=== PATIENT | female | born 1950 | race Caucasian/White ===

== ENCOUNTER 2022-02-12 20:49 | Inpatient (IN) | payer MEDICARE, OTHER, MEDICAID ==
[~2022-02-12] VITALS: Ht 167.6 cm; Wt 125.5 kg
[~2022-02-12 20:49] MED LIST: HYDROCODON-ACE1 EA10 PO; IBUPROFEN800 MG PO; NORCO 5-325 TA1 EACH PO; SULFAMETHOXAZO1 EAC1 PO; VITAMIN D21250 MCG PO
[2022-02-13] MEDS ORDERED: IBUPROFEN800 MG PO (03:35)
--- NOTE | 2022-02-13 04:27 | NUR ---
030 - ARRIVED TO FLOOR FROM ED TO RROM 119 VIA STRETCHER, 3 PEOPLE ASSIST AND AIR MATTRESS FOR TRANSFER. PT ALERT AND ORIENTED, ANXIOUS, REASSURED. ON 2LNC NOT CHRONIC, LUNGS WITH CRAKLES AT BASES MOIST PRODUCTIVE COUGH OF GREENISH COLORED PHLEGSM. ABLE TO EXPECTORATE BUT SWALLOWS IT SOMETIMES, FLUSHED FACE, RED AREAS UNER BREAST, PANNUS TC AREA AND BUTTOCKS, LOTIONS APPLIED, CLEANSED SHE IS INCONTINENT OF BOWEL AND URINE. PROCEDURES EXPLAINED. PT PLACED ON DROPLET ISOLATION PRECAUTIONS DUE TO INFLUENZA A. PT VERY WEAK HANDS AND LE WHEN TURNING BUT STRON WHEN DOING WAREHOUSE SELECTOR ASSESSMENT. SKIN CARE DONE, VERY FLAKY DAVID CLEANSED, DRY BM CLEANSED FROM LOWER LEGS, BETWEEN TOES AND FEET. COOPERATIVE WITH ASSESSMENT AND ADMIT QUESTIONS, ALERT TO ALL, COOPERATIVE. CALL LIGHT AHD FLUIDS AT BEDSIDE, TOLERATED LIQUID WELL, NO EMESIS, HOB ELEVATED TO COMFORT. IVF INFUSING RFA, FLACA SL PATENT. ORIENTED TO ROOM AND PROCEDURES AND EXPECTATIONS, STATED UNDERSTANDING. CONT TO REINFORCE POC.
--- NOTE | 2022-02-13 05:14 | NUR ---
Pt resting, O2 2LNC, no distress noted, IVF infusing w/o problems, hob elevated, call light at hands reach
--- NOTE | 2022-02-13 06:52 | NUR ---
IN TO CHECK ON PT, PER RN, PT SLEEPING WELL, TOOK RR,HR,spO2
--- NOTE | 2022-02-13 07:35 | EKG ---
[facility] [address] [facility] [place] [address] Signed Normal sinus rhythm Left axis deviation Low voltage QRS Inferior infarct , age undetermined Abnormal ECG No previous ECGs available Confirmed by YENNY CAZARES MD ([id number]) on 02/13/2022 7:34:54 AM Electronically Signed By: YENNY CAZARES MD 02/13/22 0735 PATIENT NAME: CASISHAILESHY IGGY Electrocardiogram DATE OF : 52 PHYSICIAN: YENNY CAZARES MD REPORT #: [id number] REPORT IS CONFIDENTIAL AND NOT TO BE RELEASED WITHOUT AUTHORIZATION
--- NOTE | 2022-02-13 07:50 | NUR ---
patient put on the bed mera, she stated she has to poop. patient is sitting up in the bed. trying to use the commode
--- NOTE | 2022-02-13 07:50 | NUR ---
PT AWAKE AND INTERACTIVE AT TIME OF SHIFT REPORT. RESTING IN BED WATCHING TV. NEEDED ITEMS IN REACH.
[2022-02-13] MEDS ORDERED: SERTRALINE HCL50 MG PO (08:16)
--- NOTE | 2022-02-13 09:15 | NUR ---
PT TOLERATES MOST OF MORNING MEAL, CONTINUES RESTING IN BED. VISITORS PRESENT X2 DISCUSSING HOUSING FOR PT AT THIS TIME. 02 SATS 96% ON 2 L DECREASED TO 1 LPM. PT DENIES NEEDS
--- NOTE | 2022-02-13 09:15 | NUR ---
PATIENT IN THE BED RESTING, FAMILY IN THE ROOM. WATER REFRESHED, WARM WASHCLOTH OFFERED AND GIVEN. VITALS AND I&O'S WERE DONE. ROOM IS CLEANED UP. CALL LIGHT WITHIN REACH. NO FURTHER NEEDS AT THIS TIME.
[2022-02-13] MEDS ORDERED: VITAMIN D-40010 MCG PO (10:30)
[2022-02-13] MEDS ORDERED: MULTI VITAMIN1 EACH PO (10:31)
--- NOTE | 2022-02-13 12:41 | NUR ---
DR ESCOBAR IN TO SEE PT ALL QUESTIONS ANSWERED. PT SITTING UP FOR NOON MEAL SPEAKING OF PARKINSONS DX. PT APPEARS TO BE COPING WELL, STATES "AT LEAST WE KNOW WHAT'S GOING ON" FAMILY FROM OUT OF TOWN LEFT, BUT ASSURED PT THEY WOULD RETURN.
--- NOTE | 2022-02-13 12:43 | NUR ---
PT WORKING WITH P/T
--- NOTE | 2022-02-13 15:07 | NUR ---
PT SLEEPING SOUNDLY. CALL LIGHT AT BEDSIDE
--- NOTE | 2022-02-13 16:16 | NUR ---
PT RESTING IN BED ASSISTED HER TO REPOSITION, SHE STATES HER LEGS ARE CRAMPING A BIT. PARKINSONS INFORMATIONAL BOOKLET PROVIDED, SAT WITH PT FOR SOME TIME LISTENING TO CONCERNS AND DIFFICULTIES SHE HAS HAD, NOT KNOWING HER DX AND BEING ACCUSED OF NONCOMPLIANCE AND MALAISE.
--- NOTE | 2022-02-13 17:00 | NUR ---
PT REPOSITIONED IN BED SITTING UP WITH EVENING MEAL. FAMILY RETURN TO VISIT.
--- NOTE | 2022-02-13 19:40 | NUR ---
CALL LIGHT ANSWERED. PATIENT NEEDED HELP OPENING CRACKERS AND ASKED FOR 4 MORE. PROVIDED. ICE WATER REFILLED. NO OTHER CARE NEEDS AT THIS TIME.
--- NOTE | 2022-02-13 20:57 | NUR ---
NEW IV BAG INFUSING. PT WITH EYSE CLOSED, CONGESTED COUGHING OCCASSIONALLY, DID NOT WAKE TO SOUND IN ROOM.
--- NOTE | 2022-02-13 23:30 | NUR ---
THIS ASBESTOS BRAKE LINING FINISHER AND PRIMARY RN ZOEY CHANGED PATIENT'S INCONTINENT OF BM AND URINE. PLACED FRESH DRAW SHEET, CHUX AND ATTENDS. PATIENT BOOSTED UP TO THE BED AND REPOSITIONED TO PATIENT'S COMFORT. CALL LIGHT WITHIN REACH.
--- NOTE | 2022-02-13 23:52 | NUR ---
INTO ROOM CHANGED AND REPOSITIONED. X LARGE BOWEL MOVMENT. PATIENT STATED " THAT MELATONIN IS REALLY WORKING". THEN HELPED PATIENT REPOSITION. PATIENT DRINKING FLUIDS FROM CUP, THEN WHEN REPOSITIONING PILLOWS PATIENT STATED " MOVE MY HAND AND PLEASE REPOSITION THE PILLOWS TO GIVE ME NECK SUPPORT" PATIENT VERBALIZED BEING ABLE TO MOVE SOMETIMES THEN FEELS LIKE I CAN'T MOVE AT ALL.
--- NOTE | 2022-02-14 | NUR ---
PATIENT CALLED TO HAVE PILLOWS REPOSITIONED BEHIND NECK. PATIENT STATES "I AM SO UNCOMFORTABLE, JUST MOVE IT TO WHERE MY HEAD CAN REST BACK" PLACED PILLOWS REQUESTED. PATIENT STATES " THAT'S NOT IT, I GUESS YOU DON'T UNDERSTAND WHAT I AM ASKING FOR" ENCOURAGED PATIENT TO USE ARM THAT SHE COULD LIFT TO MOVE PILLOWS. PATIENT STATED " I JUST CAN'T".
--- NOTE | 2022-02-14 01:10 | NUR ---
PATIENT APPEARS TO BE RESTING. SHIFTED TO LEFT SIDE. LIGHTS DIM. CALL LIGHT WITHIN REACH.
--- NOTE | 2022-02-14 02:13 | NUR ---
HEARD PATIENT YELLING. PATIENT NEEDED HELP TO HAVE SUPPORT UNDER HER NECK. PILLOWS WERE DOWN ON THE FLOOR. 2 ROLLED TOWELS AND HER STUFF TOY PLACED UNDER HER NECK. PATIENT STATED "THAT'S GOOD, THANK YOU". ICE WATER REFRESHED. CALL LIGHT ON TOP OF HER STOMACH PER PATIENT.
--- NOTE | 2022-02-14 02:33 | NUR ---
PT CALLED, NEEDED HER NECK REPOSITIONED MORE, MULT ATTEMPTS FOR COMFORT ATTEMPTED. PT USED AN OPEN POP CAN TO HELP SUPPORT NECK, THUS SPILLED SOME ON STUFFED ANIMAL, CURRENTLY WITH TOWEL SUPPORT UPPER SHOULDERS, STATED IMPROVED POSITIONING
--- NOTE | 2022-02-14 05:08 | NUR ---
PATIENT C/O DISCOMFORT UNDER HER NECK. STUFFED ANIMAL AND ROLLED TOWEL PLACED. PILLOW UNDER HER LEGS MULTIPLE ATTEMPTS TO HER COMFORTS.
--- NOTE | 2022-02-14 05:09 | NUR ---
ASSISTED WITH REPOSITIONING PATIENT LEGS. PATIENT STATES " MOVE MY LEG UP TO MY ASS" ATTEMPTED TO BED LEG TO MEET REQUST. PATIENT UNABLE TO HOLD IT THERE. STATES " I AM SO FUCKING UNCOMFORTABLE, JUST HOLD IT UP FOR 5 MINUTES" REPOSITIONED PATIENT, PATIENT STATED " I GUESS I WILL JUST LIVE WITH THIS" DIESEL RETROFIT INSTALLER BACK INTO ROOM TO HELP PATIENT REPOSITION TO COMFORT.
--- NOTE | 2022-02-14 05:41 | NUR ---
PATIENT CALLED AND REQUESTED TYLENOL AND MOM. ADMINISTERED PRN PER JUN. LAB INTO ROOM, UNABLE TO DRAW PATIENT. SHERRY BLOOD FROM IV LINE FOR THEM. PROVIDED ICE WATER. PLAN TO GET PATIENT UP IN RECLINER. AND PLAN TO ORDER ARJO BED TODAY FOR PATIENT.
--- NOTE | 2022-02-14 05:59 | NUR ---
PATIENT CALLED NURSE BACK INTO ROOM, REQUESTED CUP TO PLACE BEHIND NECK. PROVIDED CLEAN PLASTIC CUP. PATIENT THEN SELF PLACED BEHIND HEAD AND STATED " THERE FINALLY SOMETHING I CAN DO MYSELF, I HAVE JUST BEEN MISERABLE ALL NIGHT" VERBALIZED TO PATIENT THAT SHE HAD APPEARED TO BE SLEEPING FOR AT LEAST 4 HOURS. PATIENT THEN STATED " YEAH, BUT THAT IS GONE NOW. CAN YOU PLEASE JUST GIVE ME SOMETHING TO KNOCK ME OUT". PROVIDED PATIENT REASURRANCE, AND MADE A PLAN TO LET TYLENOL START WORKING THEN WOULD TRANSFER PATIENT TO RECLINER. PATIENT APPEARS TO BE CONCERNED ABOUT QUALITY OF LIFE IF SHE CONTINUES TO HAVE TO LIVE THAT WAY. STATES " I CAN'T LIVE THIS WAY ANYMORE, I AM NOT SUICIDAL"
--- NOTE | 2022-02-14 07:17 | NUR ---
2 PA CHANGED INCONTINENT ATTENDS, CHUX AND GOWN. PATIENT REPOSITIONED.
--- NOTE | 2022-02-14 07:48 | NUR ---
ASSISTED PT TO REPOSITION (AT LENGTH) IN AN EFFORT TO GET COMFORTABLE. FRESH H20 TO BEDSIDE. PT AGREES SHE IS MOSTLY COMFORTABLE AT THIS TIME. CALL LIGHT IN LAP.
--- NOTE | 2022-02-14 10:01 | NUR ---
DR CAZARES IN TO SEE PT, FAMILY IS PRESENT QUESTIONS ASKED AND ALL QUESTIONS ANSWERED. PLAN OF CARE DISCUSSED AT LENGTH. PT ENCOURAGED TO PARTICIPATE IN P/T ENTHUSIASTICALLY.
--- NOTE | 2022-02-14 10:40 | NUR ---
DC WAD IMPREGNATOR, PT, AND FAMILY X2 MEETING TO DISCUSS PLANS FOR AFTER DC
--- NOTE | 2022-02-14 10:50 | NUR ---
Lengthy conversation with pt and her niece. Pt wanting to go the an SNF. WE then discussed requirements and pt would need to have documentation she is in need of a SNF. Per pt 6 weeks ago she was living at home and caring for self. She has declined and is stating she is not able to help her self at all. Discussed per reports pt is refusing to work with PT and she will need to do so, so they can evaluate her needs. Pt states she is willing to try. Pt is currently living at [facility]. Pt also saw Dr. Lew last week and a referral was made to a neurologist. She is unclear what office. Per [address] Farris feels pt may have Parkinson's. I will call [facility] and check if they know about a referral, if not I will contact Dr. Lew's office. Relatives are leaving to return to [place]. Gave them my card and will call when I have further information.
--- NOTE | 2022-02-14 11:25 | NUR ---
UNDERGARMENT CHANGED AND TC CARE PROVIDED, PT REPOSITIONED. PT STATES SHE FEELS LIKE MUSCLE RELAXER IS HELPING. CALL LIGHT IN REACH FRESH H20 TO BEDSIDE
--- NOTE | 2022-02-14 11:25 | NUR ---
medications reconciled using pharmacy records and patient interview
--- NOTE | 2022-02-14 11:50 | NUR ---
Called and spoke with Ree at [facility]. She states pt may return there when she is medically cleared. She states she did receive notice last week, Dr. Lew was sending a referral for neurology. She is unclear which neurology office the referral was sent.
--- NOTE | 2022-02-14 12:15 | NUR ---
Called and spoke with Tania at [facility]. Ref[phone]. Per Tania it usually takes about 1 week and then the office will call the patient with an appointment. Updated Ree at [facility].
--- NOTE | 2022-02-14 13:23 | NUR ---
DUE TO PRECAUTIONS, M/S RN PATRICIA RECOMMEND I NOT VISIT PT AT THIS TIME. WILL FOLLOW NEEDED
--- NOTE | 2022-02-14 15:10 | NUR ---
PT STATES SHE THINKS FLEXARIL HAS BEEN VERY EFFECTIVE FOR HER. SHE IS ABLE TO RELAX SOME AND EVEN NAPPED BRIEFLY. PT REPORTS IMPROVED MOVEMENT OF LEFT ARM AND IS ABLE TO USE IT SOME TODAY. MOVED TO BARIATRIC BED VIA CITLALI LIFT. PT AGREES SHE IS COMFORTABLE. UNDERGARMENT CHANGED AND TC CARE PROVIDED.
--- NOTE | 2022-02-14 18:50 | NUR ---
PATIENT IN BED WATCHING TV. XL INCONT VOID. TC CARE DONE. NEW ATTENDS AND CHUCKS IN PLACE. PATIENT REPOSTIONED UP IN BED. VITALS AND I&O'S CHARTED. FRESHS WATER GIVEN. CALL LIGHT IN REACH. NO FURTHER NEEDS AT THIS TIME.
--- NOTE | 2022-02-14 19:35 | NUR ---
REPORT RECEIVED FROM DAY SHIFT RN. PT LYING IN BED RESTING WITH EYES CLOSED. RESPIRATIONS EVEN. CALL LIGHT IN REACH.
--- NOTE | 2022-02-14 21:30 | NUR ---
EVENING ASSESSMENT COMPLETE. SCHEDULED MEDS ADMIN PER EMAR. PT DENIES PAIN OR NAUSEA. INCONTINENT OF URINE AND BM. TC CARE DONE BY STAFF. 3PA TO CHANGE ATTENDS AND REPOSITION PT IN BED. PT ABLE TO ASSIST WITH SOME CARES. PT ON RA. SATS MID 90'S. DENIES SOB. OCCASIONAL COUGH NOTED. PT DENIES QUESTIONS OR CONCERNS. BELONGINGS AND CALL LIGHT WITHIN REACH.
--- NOTE | 2022-02-14 22:21 | NUR ---
PT. USED CALL LIGHT FOR MORE WATER. PT. BROUGHT WATER AND WAS UNHAPPY WITH THE CUP BEING FULL AND WAS ADJUSTED. PT. REQUESTED THAT HER SHEET BE LOWERED [address] THIS NURSE WAS LEAVING PT STATES "I NEED SOMETHING ELSE, BUT I GUESS YOU DONT WANT TO DO IT." PT STATES SHE IS CROOKED IN THE BED AND WANTS TO BE REPOSITIONED IN THE CENTER. THIS NURSE TOLD THE PT. ONE PERSON CANNOT REPOSITION HER ALONE, BUT COULD STRAIGHTEN OUT HER LEGS. PT.'S LEGS REPOSITIONED SO HER BODY WAS IN ALIGNMENT. PT. STATES SHE WANTS TO BE LYING STRAIGHT IN THE MIDDLE OF THE BED. THIS NURSE TOLD PT. IT WOULD BE A FEW MINUTES BEFORE 3 NURSES COULD REPOSITION HER A FEW INCHES OVER. PT. NOT HAPPY. WILL REQUEST ASSISTANCE.
--- NOTE | 2022-02-15 01:17 | NUR ---
PT INCONTINENT OF URINE AND LARGE AMOUNT LIQUID BM. STAFF ASSIST WITH TC CARE. CLEAN ATTENDS IN PLACE. 2PA TO REPOSITION WITH CITLALI. PT ABLE TO ASSIST TO TURN IN BED AND REPOSITION HER HEAD. FRESH WATER PROVIDED. NO FURTHER NEEDS.
--- NOTE | 2022-02-15 02:37 | NUR ---
CALL LIGHT ANSWERED. IN TO ASSIST PT REPOSITION NECK WITH ROLLED TOWELS AND PILLOWS. PT REPORTS SHE IS COMFORTABLE AT THIS TIME. DENIES FURTHER NEEDS.
--- NOTE | 2022-02-15 03:16 | NUR ---
IN PT ROOM APPROX 20 MINUTES ATTEMPTING TO ASSIST PT TO REPOSITION FOR COMFORT WITH ROLLED TOWELS, PILLOWS, ETC. PT REPORTS FEELING HER HIPS, LEGS, AND HANDS "ARE IN A VICE" AND GENERALIZED DISCOMFORT 6/10. PRN FOR PAIN AND MUSCLE DISCOMFORT ADMIN PER EMAR. PT DOES REPORTS INCREASED ROM IN LEFT HAND. FRESH WATER PROVIDED. NO FURTHER NEEDS.
--- NOTE | 2022-02-15 05:10 | NUR ---
PT RESTING IN BED WITH EYES CLOSED. RESPIRATIONS EVEN. CALL LIGHT IN REACH.
--- NOTE | 2022-02-15 07:00 | NUR ---
PT RESTING WITH EYES CLOSED. AWAKENS EASILY. REPORTS SHE WAS ABLE TO REST AFTER PRN ADMIN. VS AND I&O COMPLETE. PT INCONTINENT OF URINE AND SEEDY LIQUID BM. STAFF ASSIST WITH TC CARE. 2PA TO REPOSITION IN BED WITH CITLALI SHEET. NO FURTHER NEEDS.
--- NOTE | 2022-02-15 07:30 | NUR ---
THIS RN RECEIVED SHIFT REPORT FROM JONATHAN TROY. PATIENT RESTING QUIETLY IN VERY LOW FOWLERS POSITION, EYES CLOSED, RESPIRATIONS ARE REGULAR AND EVEN, AND CALL LIGHT IS IN REACH. PATIENT HAS NO NURSE CARE NEEDS AT THIS TIME.
--- NOTE | 2022-02-15 08:20 | NUR ---
THIS RN IN TO SEE PATIENT. AM ASSESSMENT COMPLETE. LUNGS DIM THROUGHOUT AND BOWEL TONES ACTIVE. PATIENT TOOK AM MEDS WITHOUT DIFFICULTY AND IS EATING HER BREAKFAST. PATIENT REQUESTING A COUGH DROP SO NIO CEPACOL LOZANGES HAVE NOW BEEN ORDEREDD. CALL LIGHT IN REACH AND PATIENT HAS NO OTHER CARE NEEDS AT THIS TIME.
--- NOTE | 2022-02-15 09:39 | NUR ---
THIS RN IN AND GAVE PATIENT THE CEPACOL MATIAS. I HAD PROMISED TO ORDER FOR HER. PATIENT'S BREAKFAST TRY WAS CLEARED AND SHE HAD EATEN MOST OF IT. IE WATER GLASS REFILLED. PATIENT HAD NO OTHER CARE NEEDS AT THIS TIME. CALL LIGHT IS IN REACH.
--- NOTE | 2022-02-15 11:05 | NUR ---
IN TO ANSWER CALL LIGHT WITH CHARLIE FORTUNE. TC CARE PROVIDED. NO OTHER NEEDS FROM THIS RN AT THIS TIME. CHARLIE FORTNUE STILL IN ROOM.
--- NOTE | 2022-02-15 11:44 | NUR ---
IN TO GIVE PATIENT'S SCHEDULED MED WHICH SHE TOOK WITHOUT DIFFICULTY. PATIENT REPOSITIONED 5 TIMES ON THIS ROOM VISIT TO WHERE SHE WAS COMFORTABLE. CALL LIGHT IN REACH. PATIENT HAS NO OTHER CARE NEEDS AT THIS TIME.
--- NOTE | 2022-02-15 14:30 | NUR ---
Called and spoke with Ree from [facility]. Pt may return, updated pt cont. to refuse to get up with PT and they are doing exercises in the bed. Pt was discussed in 929 meeting and is cleared for dc. Per Ree, pt may return around 10-11 tomorrow. I spoke with the nurse and discussed pt riding in a wc. I spoke with pt and she does not want to return to [facility] as she wants to remain in the hospital. Discussed Dr. Delgado feels she is ready for dc, she will need to follow up with neurology in [facility]. They will call her this or next week for an appt. She then states the hospital will have to provide a ride for her to the neurologist. Let her know this is OP and she will need to discuss with [facility] and they can assist her. We had discussed yesterday the wc van and this is out of pocket, but they do transport to [place] and to [facility]. Pt then stating she will pay out of pocket to to stay at the hospital. Let her know, there is not a need for her to do this. She has new meds and she needs to return to [facility] on her medications and follow up with neurology.
[2022-02-15] MEDS ORDERED: OSELTAMIVIR PHO75 MG PO (15:08)
[2022-02-15] MEDS ORDERED: CYCLOBENZAPRINE5 MG PO (15:09)
[2022-02-15] MEDS ORDERED: CARBIDOPA-LEVO1 EAC1 PO (15:10)
--- NOTE | 2022-02-15 16:12 | NUR ---
THIS RN IN WITH CHARLIE FORTUNE AND CHANGED PATIENT'S ATTENDS AND CHUX FOR A LARGE INCONTINENCE OF URINE. PATIENT REPOSITIONED IN BED TO HER COMFORT. NEW ICE WATER GIVEN ALONG WITH SCHEDULED PO MED. CALL LIGHT IN REACH. AFTERNOON ASSESSMENT COMPLETE AND ESSENTIALLY UNCHANGED FROM AM ASSESSMENT. PATIENT DENIES ANY OTHER CARE NEEDS AT THIS TIME.
--- NOTE | 2022-02-15 16:19 | NUR ---
Called and left a message for her niece, Caitlin. Updated neuro referral was completed by the pcp office and pt should hear from them in 5-7 days. Also let her know, the plan is for pt to dc tomorrow.
--- NOTE | 2022-02-15 17:06 | NUR ---
I AM RESTRICTED FROM VISITING PT DUE TO PRECAUTIONS. WILL CONTINUE TO FOLLOW
--- NOTE | 2022-02-15 19:51 | NUR ---
REPORT RECEIVED FROM JONATHAN PHELPS. pt ON ISOLATION PRECAUTIONS FOR FLU. CNAS IN ROOM CHANGING pt.
--- NOTE | 2022-02-15 22:20 | NUR ---
pt AWAKE RESTING IN BED. INCONTINENT OF URINE AND STOOL, ATTENDS CHANGED. pt ASSISTED TO REPOSITION HIGHER IN BED, PILLOWS UNDER NECK, ARMS. ASSESSMENT COMPLETE, pt RATES PAIN 3/10 "ALL OVER". PRN TYLENOL ADMINISTERED. PRN SLEEP MEDICATION ADMINISTERED. TOOTHBRUSH, WATER, PERSONAL SUPPLIES, AND CALL LIGHT IN REACH. NO ADDITIONAL REQUESTS.
--- NOTE | 2022-02-15 23:53 | NUR ---
PATIENT CALLED FOR TISSUE. PROVIDED.
--- NOTE | 2022-02-15 23:55 | NUR ---
pt AWAKE IN ROOM. COUGHING. CALLS FOR CEPACOL LOSYULIANA, REMINDED THAT IT IS ON BEDSIDE TABLE. NO ADDITIONAL NEEDS.
--- NOTE | 2022-02-16 00:28 | NUR ---
CALL LIGHT ANSWERED PRN FLEXERIL ADMINISTERED AND PRN LOSANGE ADMINISTERED. pt ADJUSTING HOB INDEPENDENTLY. ICE WATER REFILLED. NO ADDITIONAL REQUESTS.
--- NOTE | 2022-02-16 03:19 | NUR ---
CALL LIGHT ANSWERED. pt REQUESTING HEAT ADJUSTED IN ROOM. TEMPERATURE ADJUSTED. pt REFUSES TO BE TURNED TO CHANGE ATTEND STATES "I JUST GOT TO SLEEP, I'M NOT MOVING MY NECK OFF OF THIS SPOT. IT TOOK SO LONG TO GET HERE". TC PAD SATURATED IN URINE, CHANGED. PRN CEPACOL LOSANGE PROVIDED. pt RESTING IN BED, THANKS RN FOR CARE. NO ADDITIONAL REQUESTS.
--- NOTE | 2022-02-16 05:16 | NUR ---
CALL LIGHT ANSWERED. pt REQUESTING PRN CEPACOL LOSANGE, TYLENOL FOR DISCOMFORT AND REPOSITIONING. INCONTINENT OF URINE AND SMALL SOFT STOOL. ATTENDS AND CHUX CHANGED. pt REPOSITIONED TO RIGHT SIDE. PILLOW UNDER LEFT SIDE, LEGS. ASSESSMENT COMPLETE. PRN MEDICATIONS ADMINISTERED. ICE WATER REFILLED AND IN REACH.
--- NOTE | 2022-02-16 07:15 | NUR ---
Report from Nathan Pratt RN. Patient resting in bed, call light in reach, bed rails up X2. Allowed to rest.
--- NOTE | 2022-02-16 09:21 | NUR ---
YELLING OUT. STATES SHE DOES NOT HAVE HER CALL LIGHT. CALL LIGHT LOCATED ON THE FLOOR. PATIENT REPOSITIONED PER REQUEST. ASSESSMENT COMPLETED. DENIES OTHER NEEDS AT THIS TIME. CALL LIGHT IN REACH NOW, BED RAILS UP X4, PER PATIENT REQUEST.
--- NOTE | 2022-02-16 10:00 | NUR ---
In and spoke with [facility]. Discussed dc today. Pt again stating she is not well enough to leave. Discussed Dr. feels she is ready and she is unable to state why she feels she should stay in the hospital. Pt stating she doesn't think right and I need to make decisions for her. Reminded pt she is an adult and must make decisions for herself. I am setting up the wc van to transport her home. Pt states she cannot ride in a wc van. Let her know I can call EMS but she will have to pay out of pocket as she is able to walk. Cost is $1200 for transport in town. Pt then stating she will be able to sit in a wc, she is concerned she may too weak. I will schedule the wc van.
--- NOTE | 2022-02-16 10:30 | NUR ---
Called and spoke with Ree from [facility]. Pt can return today. Called and scheduled the van for transport. Orders, progress notes, PT notes faxed to Ree.
--- NOTE | 2022-02-16 11:59 | NUR ---
PT USED CALL LIGHT FOR ASSISTANCE TO BE CHANGED FOR INCONTENENCE. THIS DELISA AND Mckenzie (JAYME) ASSISTED IN ROLING PT TO EACH SIDE WHILE PERFORMING BED BATH WELL TC CARE. BRIEF CHANGED W/PAD, INCONT CHUCKS CHANGED. PARTIAL LINEN CHANGE, VITALS/I&O'S DOCUMENTED, PT SET UP FOR BREAKFAST. CALL LIGHT IN REACH.
--- NOTE | 2022-02-16 12:32 | NUR ---
Report called to [facility].
--- NOTE | 2022-02-16 13:57 | NUR ---
REPORT FROM JONATHAN YEBOAH. PT HAS [facility] STAFF HERE TO ASSESS. PT WAS ABLE TO STAND AND WALK WITH FWW TO THE CHAIR.
--- NOTE | 2022-02-16 14:00 | NUR ---
Received a call from Nerissa and she states Uzma called and let her know she is a [facility]aron lift only. She will need to see this patient before they can accept her. She is on her way to visit with the pt. Discussed I have spoken with her yesterday about the pt not wanting to participate. She states they have had the same issue, they do not have a sharon and if pt is unable to transfer she cannot return. I will cancel transport.
--- NOTE | 2022-02-16 14:07 | NUR ---
STAFF FROM [facility] HERE TO SEE PATIENT, PATIENT WAS ABLE TO GET UP OUT OF BED AND MOVE TO CHAIR WITH ONE PERSON ASSIST. CALL LIGHT WITHIN REACH.
--- NOTE | 2022-02-16 14:30 | NUR ---
Notified by staff Ree is here and has spoken with the pt. To nurses station to speak with Ree, she states pt was able to stand and walk with a walker after their discussion. Pt may return. I will call the van and reschedule for transport today. Multiple attempts to reach the van and I am unable to contact.
--- NOTE | 2022-02-16 15:00 | NUR ---
Called and scheduled transport for 1630 with the van for pt to return to . Nurses notified.
--- NOTE | 2022-02-16 15:30 | NUR ---
ADMINISTERED SCHEDULED MEDS. PT SITTING IN CHAIR. WAS ABLE TO PLACE A TOWEL ROLLED BEHIND HER NECK BY HERSELF. REFILLED WATER.
== END 2022-02-16 16:15 | disposition home health service (06) | DRG 194 ==
LOC: ED 20:49 → MS 02-13 00:30
PROVIDERS: ADMIT Internal Medicine; ATTEND Internal Medicine
DX: J10.1 Influenza due to other identified influenza virus with other respiratory manifestations (principal); Z68.42 Body mass index [BMI] 45.0-49.9, adult; G20 Parkinson's disease; Z20.822 Contact with and (suspected) exposure to COVID-19; F02.80 Dementia in other diseases classified elsewhere, unspecified severity, without behavioral disturbance, psychotic disturbance, mood disturbance, and anxiety; E66.01 Morbid (severe) obesity due to excess calories; F32.A Depression, unspecified; F41.9 Anxiety disorder, unspecified; R32 Unspecified urinary incontinence; Z87.442 Personal history of urinary calculi; Z88.1 Allergy status to other antibiotic agents; Z79.899 Other long term (current) drug therapy
CPT/HCPCS: 36415; 71045; 80048; 80053; 81001; 83605; 83735; 83880; 84484; 85025; 87502; 93005; 93010; 94760; A9270; J0696; J1650; J2405; J3480; J7120; J7121; U0003